=== PATIENT | male | born 1990 | race African-American/Black ===

== ENCOUNTER 2018-09-14 11:23 | Emergency (ER) | payer MEDICAID, OTHER ==
[~2018-09-14] VITALS: Ht 175.3 cm; Wt 71.2 kg
[2018-09-14 11:39] VITALS: BP 113/69
[2018-09-14] MEDS ORDERED: MUPIROCIN22 GM TOPIC (12:29)
[2018-09-14] MEDS ORDERED: VIBRAMYCIN100 MG ORAL (12:29)
--- NOTE | 2018-09-14 12:29 | Emergency Room Report ---
History of Present Illness General Chief Complaint: Skin Rash/Abscess Source: Patient Present Illness HPI Pt. presents to the ED c/o 07/21 in severity localized pain, swelling, and erythema of left side of the face x almost 2 weeks. patient reports his symptoms have been progressive denies fevers or chills. Patient states that he believes symptoms started due to an ingrown hair. Patient denies swollen tender lymph nodes. pt. reports he has been "squeezing" that area and nothing has come out, just made it more painful and swollen. Denies hx of immune compromise, denies sore throat, dental pain or recent dental procedures. Allergies: Coded Allergies: No Known Allergies (Unverified , 09/14/18) Patient History Past Medical History: see triage record Past Surgical History: none Pertinent Family History: none Immunizations: UTD Reviewed Nursing Documentation: PMH: Agreed; PSxH: Agreed Nursing Documentation-PMH Past Medical History: No History, Except For Review of Systems All Other Systems: negative except mentioned in HPI Physical Exam Vital Signs Date Time Temp Pulse Resp B/P (MAP) Pulse Ox O2 Delivery O2 Flow Rate FiO2 09/14/18 11:39 98.1 69 18 113/69 98 Room Air Sp02 EP Interpretation: reviewed, normal General Appearance: no apparent distress, alert, GCS 15, non-toxic Head: normocephalic, atraumatic Eyes: bilateral eye normal inspection, bilateral eye PERRL ENT: hearing grossly normal, normal pharynx, normal voice, other - Small area of palpable fluctuance on the left side of the jaw, no erythema noted, visible swelling and moderate tenderness. No dental ttp, no pain under the tongue. Neck: full range of motion, no meningismus Respiratory: lungs clear, normal breath sounds, speaking full sentences Cardiovascular #1: regular rate, rhythm Musculoskeletal: back normal, gait/station normal, normal range of motion, non- tender Neurologic: alert, oriented x3, responsive, motor strength/tone normal, sensory intact, speech normal, grossly normal Psychiatric: judgement/insight normal Skin: normal color, no rash, warm/dry, well hydrated, other - palpable abscess -left jaw line. Lymphatic: no adenopathy Procedures Incision and Drainage Incision and Drainage : Consent: Verbal Site: left jaw line Blade Size: 22g needle I & D Procedure: betadine prep Wound Location: face - left jaw line Wound Length (cm): 1 Wound Explored: contaminated - 2cc of purulent fluid aspirated. Splint Applied?: No Sling Applied?: No Patient Tolerated: Well Complications: None Medical Decision Making PA Attestation Dr. Yepez is my supervising Physician whom patient management has been discussed with. Diagnostic Impression: Primary Impression: Abscess ER Course Pt. presents to the ED c/o 07/21 in severity localized pain, swelling, and erythema of left side of the face x almost 2 weeks. patient reports his symptoms have been progressive denies fevers or chills. Patient states that he believes symptoms started due to an ingrown hair. Patient denies swollen tender lymph nodes. pt. reports he has been "squeezing" that area and nothing has come out, just made it more painful and swollen. Denies hx of immune compromise, denies sore throat, dental pain or recent dental procedures. Ddx considered but are not limited to cellulitis, abscess, cystic acne, necrotizing fasciitis, insect bite. Vital signs: are WNL, pt. is afebrile H&PE are most consistent with small abscess along the left side of the jaw- fluctuance palpated ORDERS: none required at this time, the diagnosis is clinical ED INTERVENTIONS: -I & D.-- he declined incision with scalpel however agreed to needle aspiration. DISCHARGE: At this time pt. is stable for d/c to home. Will provide printed patient care instructions, and any necessary prescriptions. Care plan and follow up instructions have been discussed with the patient prior to discharge. Last Vital Signs Date Time Temp Pulse Resp B/P (MAP) Pulse Ox O2 Delivery O2 Flow Rate FiO2 09/14/18 11:39 98.1 69 18 113/69 98 Room Air Disposition: HOME, SELF-CARE Condition: Stable Scripts Mupirocin* (MUPIROCIN*) 22 Gm Oint...g. 1 APPLIC TOPIC THREE TIMES A DAY, #22 GM Prov: Carmen Haynes 09/14/18 Doxycycline Hyclate* (VIBRAMYCIN*) 100 Mg Capsule 100 MG ORAL EVERY 12 HOURS for 7 Days, #14 CAP 0 Refills Prov: Carmen Haynes 09/14/18 Patient Instructions: Abscess Additional Instructions: Take medications as directed. Follow up with a Primary Care Provider in 3-5 days, even if your symptoms have resolved. --Please review list of primary care clinics, if you do not already have a primary care provider Return sooner to ED if new symptoms occur, or current symptoms become worse. - Please note that this Emergency Department Report was dictated using [employer] stamper technology software, occasionally this can lead to erroneous entry secondary to interpretation by the dictation equipment. Carmen Haynes Sep 14, 2018 12:29
[2018-09-14 12:38] VITALS: BP 20/85
== END 2018-09-14 13:29 | disposition home or self-care (01) ==
LOC: EMR 12:28
DX: L02.01 Cutaneous abscess of face (principal)
CPT/HCPCS: 10060; 99284; Z7502